=== PATIENT | female | born 1970 | race Caucasian/White ===

== ENCOUNTER 2022-07-25 15:54 | Emergency (ER) | payer MEDICARE, MEDICAID ==
[2022-07-25] MEDS ORDERED: PREDNISONE10 MG PO (16:20)
[2022-07-25] MEDS ORDERED: CYCLOBENZAPRINE10 MG PO (16:20)
== END 2022-07-25 16:29 | disposition home or self-care (01) ==
LOC: ED 15:54
DX: M54.42 Lumbago with sciatica, left side (principal); M79.652 Pain in left thigh